=== PATIENT | male | born 1950 | race Caucasian/White ===

== ENCOUNTER 2019-02-21 16:15 | Emergency (ER) | payer MEDICARE, OTHER ==
[~2019-02-21] VITALS: Ht 190.5 cm; Wt 113.4 kg
[2019-02-21 17:07] LABS: ABSOLUTE EOSINOPHILS 0.2 thou/uL (0.0-0.7); ABSOLUTE LYMPHOCYTES 2.3 thou/uL (0.8-5.3); ABSOLUTE NEUTROPHILS 6.7 thou/uL (1.6-8.1); BASOPHILS 0.4 %; EOSINOPHILS 1.8 %; HEMATOCRIT 32.7 % (42.0-52.0); HEMOGLOBIN 10.6 gm/dL (14.0-18.0); LYMPHOCYTES 22.5 %; MCH 21.2 pg (26.0-34.0); MCHC 32.2 g/dL (28.0-37.0); MCV 65.8 fL (80.0-100.0); MONOCYTES 9.7 %; MPV 7.9 fl. (7.2-11.1); NUCLEATED RBCS 0 /100WBC; PLATELET COUNT* 209 thou/uL (150-400); POLYS 65.6 %; RBC 4.97 mil/uL (4.50-6.00); RDW-CV 15.7 % (10.5-14.5); WBC 10.2 thou/uL (4.0-11.0)
[2019-02-21 17:15] LABS: CALCIUM 8.7 mg/dL (8.5-10.1); CREATININE 1.5 mg/dL (0.6-1.3); POTASSIUM 3.9 mmol/L (3.5-5.1)
[2019-02-21 17:17] LABS: APTT 30.8 Seconds (25.0-31.3); PROTIME 10.2 Seconds (9.20-11.50)
[2019-02-21 17:29] LABS: INFLUENZA A ANTIGEN Negative (Negative); INFLUENZA B ANTIGEN Negative (Negative)
[2019-02-21 17:30] LABS: ALBUMIN 3.1 g/dL (3.4-5.0); TOTAL BILIRUBIN 0.3 mg/dL (<0.1-1.0)
[2019-02-21 17:36] LABS: PLATELET ESTIMATE ADEQUATE
[2019-02-21 17:37] LABS: ANISOCYTOSIS Occasional; MICROCYTES 3+
[2019-02-21 17:38] LABS: HYPOCHROMASIA 1+
[2019-02-21 17:39] LABS: OVALOCYTES Occasional
[2019-02-21 17:56] LABS: URINE BILIRUBIN NEGATIVE (Negative); URINE BLOOD 3+ (Negative); URINE CLARITY CLEAR; URINE COLOR YELLOW; URINE GLUCOSE-RANDOM NEGATIVE (Negative); URINE KETONES NEGATIVE (Negative); URINE LEUKOCYTES-REFLEX 1+ (Negative); URINE NITRITE-REFLEX NEGATIVE (Negative); URINE PROTEIN 1+ (Negative); URINE SPECIFIC GRAVITY <= 1.005 (1.005-1.030); URINE UROBILINOGEN 0.2 E.U./dl (0.2-1.0)
[2019-02-21] MEDS ORDERED: LEVAQUIN 500 M500 MG PO (18:17)
[2019-02-21 18:18] LABS: SQUAMOUS 0-3 Few /LPF (0-3); WBC CLUMPS Few (None Seen)
[2019-02-21 18:19] LABS: CASTS None Seen /LPF (None Seen); CRYSTALS None Seen /LPF (None Seen); MUCUS 0-3 Light strn/LPF (None Seen); URINE RBC 3-10 Few /HPF (0-2); URINE WBC-REFLEX 6-15 Few /HPF (0-5)
[2019-02-21 18:35] VITALS: BP 162/96
--- NOTE | 2019-02-22 10:01 | EKG ---
[place] [address] ELECTROCARDIOGRAM REPORT Name: KASSICRYSTAL Todd [id number] Admission: 02/21/19 Attend Phys: Discharge: 02/21/19 Date of : 54 Report #: [id number] THIS REPORT FOR: //name// [facility] ED Test Date: 2019-02-21 Test Time: 16:50:29 Pat Name: CRYSTAL SOLITARIO Department: Room: Gender: M Director Of Income Tax: YORDY : 1950 Requested By: Melvin Reynolds Order Number: [id number] MD: Gregg Sexton Measurements Intervals [place] Rate: 113 P: 15 AR: 165 QRS: -17 QRSD: 96 T: 48 QT: 345 QTc: 473 Interpretive Statements Sinus tachycardia Borderline left axis deviation Abnormal R-wave progression, late transition No previous ECG available for comparison Electronically Signed On 02-22-2019 10:01:01 COMPLIANCE REVIEWER by Gregg Sexton [email or web address] <ELECTRONICALLY SIGNED> By: Gregg Sexton MD, [facility] 02/22/19 1001 49 1650 Gregg Sexton MD, FACC /EPI
== END 2019-02-21 18:37 | disposition home or self-care (01) ==
LOC: M.ERS 16:15
PROVIDERS: Family Medicine
DX: N39.0 Urinary tract infection, site not specified (principal); R53.1 Weakness

== ENCOUNTER 2020-09-03 09:40 | Emergency (ER) | payer OTHER, MEDICARE ==
[~2020-09-03] VITALS: Ht 190.5 cm; Wt 119.8 kg
[~2020-09-03 09:40] MED LIST: LEVAQUIN 500 M500 MG PO
[2020-09-03] MEDS ORDERED: CANCER MED (09:56)
[2020-09-03 10:51] LABS: URINE BILIRUBIN NEGATIVE (Negative); URINE BLOOD 3+ (Negative); URINE CLARITY CLEAR; URINE COLOR YELLOW; URINE GLUCOSE-RANDOM NEGATIVE (Negative); URINE KETONES NEGATIVE (Negative); URINE PROTEIN 2+ (Negative); URINE UROBILINOGEN 0.2 E.U./dl (0.2-1.0)
[2020-09-03 10:56] LABS: URINE LEUKOCYTES-REFLEX 3+ (Negative); URINE NITRITE-REFLEX POSITIVE (Negative)
[2020-09-03 10:57] LABS: AMORPHOUS URATES Few /LPF (None Seen); BACTERIA-REFLEX >30 Many /HPF (None Seen); CASTS None Seen /LPF (None Seen); CRYSTALS None Seen /LPF (None Seen); MUCUS >6 Heavy strn/LPF (None Seen); SQUAMOUS 0-3 Few /LPF (0-3); URINE RBC 3-10 Few /HPF (0-2); URINE WBC-REFLEX >25 Many /HPF (0-5)
[2020-09-03] MEDS ORDERED: MACROBID 100 M100 M1 PO (10:58)
[2020-09-03 11:14] VITALS: BP 173/94
== END 2020-09-03 11:14 | disposition home or self-care (01) ==
LOC: M.ERS 09:40
PROVIDERS: Family Medicine
DX: T83.018A Breakdown (mechanical) of other urinary catheter, initial encounter (principal); N39.0 Urinary tract infection, site not specified; I10 Essential (primary) hypertension; Y84.9 Medical procedure, unspecified as the cause of abnormal reaction of the patient, or of later complication, without mention of misadventure at the time of the procedure; Y92.89 Other specified places as the place of occurrence of the external cause

== ENCOUNTER 2020-12-08 20:46 | Inpatient (IN) | payer OTHER ==
[~2020-12-08] VITALS: Ht 190.5 cm; Wt 121.6 kg
[~2020-12-08 20:46] MED LIST changes: +CANCER MED; +MACROBID 100 M100 M1 PO
[2020-12-08 21:11] VITALS: BP 156/85
[2020-12-08 21:16] VITALS: BP 151/92
[2020-12-08] MEDS ORDERED: XTANDI40 MG PO (21:23)
[2020-12-08] MEDS ORDERED: CENTRUM ADULTS1 EACH PO (21:24)
[2020-12-08] MEDS ORDERED: NORVASC5 M1 PO (21:24)
[2020-12-08] MEDS ORDERED: ASA81BEC PO (21:24)
[2020-12-08] MEDS ORDERED: IRON236 MG PO (21:25)
[2020-12-08] MEDS ORDERED: D3 (21:26)
[2020-12-08] MEDS ORDERED: CINNAMON500 MG PO (21:26)
[2020-12-08 22:03] LABS: ABSOLUTE EOSINOPHILS 0.2 thou/uL (0.0-0.7); ABSOLUTE LYMPHOCYTES 1.2 thou/uL (0.8-5.3); ABSOLUTE NEUTROPHILS 11.4 thou/uL (1.6-8.1); BASOPHILS 0.3 %; EOSINOPHILS 1.4 %; HEMATOCRIT 37.2 % (42.0-52.0); HEMOGLOBIN 11.8 gm/dL (14.0-18.0); LYMPHOCYTES 8.4 %; MCH 20.8 pg (26.0-34.0); MCHC 31.7 g/dL (28.0-37.0); MCV 65.6 fL (80.0-100.0); MONOCYTES 7.5 %; MPV 7.6 fl. (7.2-11.1); NUCLEATED RBCS 0 /100WBC; PLATELET COUNT* 302 thou/uL (150-400); POLYS 82.4 %; RBC 5.67 mil/uL (4.50-6.00); RDW-CV 16.6 % (10.5-14.5); WBC 13.8 thou/uL (4.0-11.0)
[2020-12-08 22:12] LABS: CALCIUM 9.4 mg/dL (8.5-10.1); CREATININE 1.3 mg/dL (0.6-1.3); POTASSIUM 3.7 mmol/L (3.5-5.1)
[2020-12-08 22:15] LABS: URINE COLOR YELLOW
[2020-12-08 22:16] LABS: SQUAMOUS 0-3 Few /LPF (0-3); URINE CLARITY CLOUDY; URINE WBC-REFLEX >25 Many /HPF (0-5)
[2020-12-08 22:17] LABS: CASTS None Seen /LPF (None Seen); CRYSTALS None Seen /LPF (None Seen)
[2020-12-08 22:17] LABS: ALBUMIN 3.4 g/dL (3.4-5.0); MAGNESIUM 1.8 mg/dL (1.8-2.4); TOTAL BILIRUBIN 0.4 mg/dL (<0.1-1.0); TOTAL PROTEIN 8.1 g/dL (6.4-8.2)
[2020-12-08 22:22] LABS: PLATELET ESTIMATE ADEQUATE
[2020-12-08 22:24] LABS: ANISOCYTOSIS 1+; HYPOCHROMASIA 1+; MICROCYTES 1+
[2020-12-08 23:09] LABS: BE 0.3 mmol/L (-2 to +3); PCO2 33.6 mmHg (35.0-45.0); PO2 79.8 mmHg (75.0-100.0); pH 7.463 (7.340-7.450)
[2020-12-09] VITALS (7 sets, daily range): BP systolic 114–145; BP diastolic 58–86
--- NOTE | 2020-12-09 11:32 | EKG ---
[place] [address] ELECTROCARDIOGRAM REPORT Name: CRYSTAL SOLITARIO Room: [place] [address] ADM [place] [facility]#: [id number] Admission: 12/09/20 Attend Phys: Demetris Landrum, Discharge: Date of : 54 Date of Service: 12/08/202221 Report #: [id number] THIS REPORT FOR: //name// [facility] ED Test Date: 2020-12-08 Test Time: 22:22:55 Pat Name: CRYSTAL SOLITARIO Department: Room: [facility] Gender: M Prototype Engineer: [facility] : 1950 Requested By: Ana Michelle Order Number: [id number] MD: Anthony Booker Measurements Intervals [place] Rate: 109 P: 32 LA: 156 QRS: -24 QRSD: 94 T: 82 QT: 347 QTc: 468 Interpretive Statements Sinus tachycardia Borderline left axis deviation Abnormal R-wave progression, late transition Compared to ECG 02/21/2019 16:50:29 No significant changes Electronically Signed On 12-09-2020 11:31:44 CDT by Anthony Booker [email or web address] <ELECTRONICALLY SIGNED> By: Manuelito Booker MD, FACC 12/09/20 1131 21 21 Manuelito Booker MD, FAC /EPI
[2020-12-10 03:30] VITALS: BP 107/52
[2020-12-10 04:33] LABS: HEMATOCRIT 30.7 % (42.0-52.0); HEMOGLOBIN 9.9 gm/dL (14.0-18.0); MCH 21.4 pg (26.0-34.0); MCHC 32.3 g/dL (28.0-37.0); MCV 66.3 fL (80.0-100.0); MPV 7.9 fl. (7.2-11.1); RBC 4.62 mil/uL (4.50-6.00); RDW-CV 16.7 % (10.5-14.5); WBC 7.9 thou/uL (4.0-11.0)
[2020-12-10 04:59] LABS: CALCIUM 8.2 mg/dL (8.5-10.1); POTASSIUM 3.4 mmol/L (3.5-5.1)
[2020-12-10 12:00] VITALS: BP 150/82
[2020-12-10 16:00] VITALS: BP 151/80
[2020-12-10 20:00] VITALS: BP 154/80
[2020-12-11 00:31] VITALS: BP 151/81
[2020-12-11 04:22] VITALS: BP 137/81
[2020-12-11 04:31] LABS: HEMATOCRIT 30.9 % (42.0-52.0); HEMOGLOBIN 9.8 gm/dL (14.0-18.0); MCH 21.1 pg (26.0-34.0); MCHC 31.7 g/dL (28.0-37.0); MCV 66.5 fL (80.0-100.0); MPV 7.2 fl. (7.2-11.1); RBC 4.64 mil/uL (4.50-6.00); RDW-CV 16.9 % (10.5-14.5); WBC 7.2 thou/uL (4.0-11.0)
[2020-12-11 04:46] LABS: CALCIUM 8.4 mg/dL (8.5-10.1); CREATININE 1.1 mg/dL (0.6-1.3); POTASSIUM 3.6 mmol/L (3.5-5.1)
[2020-12-11 08:00] VITALS: BP 151/62
[2020-12-11 12:17] VITALS: BP 152/85
[2020-12-11 16:31] VITALS: BP 146/82
[2020-12-11 19:44] VITALS: BP 141/96
[2020-12-12] VITALS: BP 152/88
[2020-12-12 04:00] VITALS: BP 142/71
[2020-12-12 07:51] VITALS: BP 138/72
[2020-12-12 11:47] VITALS: BP 153/86
[2020-12-12 16:36] VITALS: BP 139/79
[2020-12-13] VITALS (7 sets, daily range): BP systolic 130–162; BP diastolic 61–87
[2020-12-13 07:46] LABS: HEMATOCRIT 31.7 % (42.0-52.0); HEMOGLOBIN 10.1 gm/dL (14.0-18.0); MCH 21.1 pg (26.0-34.0); MCHC 31.9 g/dL (28.0-37.0); MCV 66.2 fL (80.0-100.0); MPV 7.2 fl. (7.2-11.1); RBC 4.79 mil/uL (4.50-6.00); RDW-CV 16.5 % (10.5-14.5); WBC 6.8 thou/uL (4.0-11.0)
[2020-12-13 07:57] LABS: CALCIUM 8.5 mg/dL (8.5-10.1); CREATININE 1.1 mg/dL (0.6-1.3); POTASSIUM 3.8 mmol/L (3.5-5.1)
[2020-12-13] MEDS ORDERED: CEFEPIME HCL2 GM IV (11:44)
[2020-12-14 04:00] VITALS: BP 145/88
[2020-12-14 09:18] VITALS: BP 155/79
[2020-12-14 12:00] VITALS: BP 142/80
[2020-12-14 13:49] VITALS: BP 156/87
[2020-12-14 13:50] VITALS: BP 156/87
[2020-12-14 13:53] VITALS: BP 156/87
== END 2020-12-14 14:43 | disposition home health service (06) | DRG 872 ==
LOC: M.ERS 20:46 → M.TBA-ER 12-09 01:20 → M.2W 12-09 01:20
PROVIDERS: Internal Medicine; Personal Emergency Response Attendant; ADMIT Internal Medicine; ATTEND Internal Medicine
PROC: 02H633Z Insertion of Infusion Device into Right Atrium, Percutaneous Approach (ICD-10-PCS; principal; 2020-12-13)
PROC: B548ZZA Ultrasonography of Superior Vena Cava, Guidance (ICD-10-PCS; principal; 2020-12-13)
PROC: B5181ZA Fluoroscopy of Superior Vena Cava using Low Osmolar Contrast, Guidance (ICD-10-PCS; principal; 2020-12-13)
DX: A41.9 Sepsis, unspecified organism (principal); N39.0 Urinary tract infection, site not specified; I10 Essential (primary) hypertension; R53.81 Other malaise; R31.9 Hematuria, unspecified; B96.89 Other specified bacterial agents as the cause of diseases classified elsewhere; G35 Multiple sclerosis; N31.9 Neuromuscular dysfunction of bladder, unspecified; Z79.899 Other long term (current) drug therapy

== ENCOUNTER 2020-12-20 11:26 | Inpatient (IN) | payer OTHER ==
[~2020-12-20] VITALS: Ht 190.5 cm; Wt 114.8 kg
--- NOTE | ~2020-12-20 | CON ---
[facility] [address] [place] [address] CONSULTATION Name: KASSICRYSTAL Todd Room: [address] IN M.R.#: [id number] Admission: 12/20/20 Attend Phys: Veronika Sanches Discharge: Date of : 54 Report #: [id number] THIS REPORT FOR: cc: Ana Paula Morales MD, Lin W. MD Khosla, Parveen K. MD ~ DATE OF CONSULTATION: 12/20/2020 HISTORY OF PRESENT ILLNESS: This is a 70-year-old male patient who was seen by me in the Emergency Room. I talked to Emergency Room physician. Both patient and the significant other are poor historian. They did tell me that he was diagnosed in [place] with MS, that was 30-40 years ago. He was mainly having ambulation difficulty. When I asked him whether he has any visual loss, which came back in 3-4 weeks, he did not give a good answer. They said they used to get injection in the abdomen at one time, which I suspect was a disease modifying treatment with Copaxone, but they do not know the name. In any event, he has not seen any neurologist for a long time and he is not on any disease modifying treatment. He was in this hospital for sepsis and he has been to [facility]. He is pretty certain they did an MRI of the brain with and without contrast on him in [facility]. I am trying to get that records. His difficulty appeared to be mostly in ambulation. REVIEW OF SYSTEMS: A 14-point review of system is positive for a diagnosis of MS, recurrent urinary tract infection, generalized weakness, debility. He does not think his memory is affected. I do not see a pattern of relapsing remitting MS in this patient. It appears that the problem is getting gradually worse the best I can tell. I carried out the 14-point review of system in this patient. He has urinary problem, but he denies any eye, ENT, cardiac, respiratory, musculoskeletal, constitutional, dermatological, hematological, psychiatric, throat allergic symptom associated with present symptomatology. PAST MEDICAL HISTORY: Positive for diagnosis of MS. FAMILY HISTORY: Unremarkable. SOCIAL HISTORY: He denies the use of alcohol or tobacco. PHYSICAL EXAMINATION: The patient's examination indicated a well-built individual. His hearing and vision looks adequate. He does not appear to have any facial weakness. He can tell me what month it is. His speech looks intact. Cranial nerve examination, some time there was a question of nystagmus, but it was not a prominent finding. Otherwise, cranial nerve examination appears unremarkable. He moves all 4 extremities. His position sense is intact. His reflexes, if anything, are somewhat diminished. His plantar is mute. His tone looks symmetrical. I tried to do [id number] on him. [place] [address] CONSULTATION Name: CRYSTAL SOLITARIO Todd Room: [address]#: [id number] Admission: 12/20/20 Attend Phys: Veronika Sanches Discharge: Date of : 54 Report #: [id number] the instruction. He does not stay on the colindres, but it does appear that he may have some ataxia. They are difficult to tell. I could not look at the fundus. He is a well-built individual, who is obese. His cardiac examination appears unremarkable. No respiratory difficulty was noticed. His blood pressure is 127/73, respirations 22, pulse is 102. There is no edema and his pulses are palpable. LABORATORY DATA: Indicate a normal white count. IMPRESSION AND PLAN: Pretty difficult to form in this patient, but he does carry a diagnosis of multiple sclerosis. If he had a recent MRI done at [facility], I do not think there is any need to repeat it and we will just try to get that from them. He needs to be treated for the metabolic problem. If his fatigue still continues, he can be given a trial with Provigil, but I will await the results of MRI from [facility] and I will order some basic workup like vitamin B12, TSH and vitamin D levels in this patient, and we will follow up this patient with you. Thank you very much for this referral. By: [id number] Kaye MD /gretta
--- NOTE | ~2020-12-20 | CON ---
[address] [address] CONSULTATION Name: CRYSTAL SOLITARIO Room: [address] IN M.R.#: [id number] Admission: 12/20/20 Attend Phys: Veronika Sanches Discharge: Date of : 54 Report #: [id number] THIS REPORT FOR: cc: Ana Paula Morales MD, Lin W. MD Khosla, Parveen K. MD ~ DATE OF CONSULTATION: 12/21/2020 HISTORY OF PRESENT ILLNESS: A 70-year-old male patient who was seen by me today and he says he is feeling better. His weakness has improved. He is not back to the baseline yet. We have made multiple attempts to get records from [facility], but we have been unsuccessful so far. PHYSICAL EXAMINATION: Pretty much unchanged. NEUROLOGIC: His higher functions, cranial nerve and neuromuscular examination subjectively was not different. CARDIAC AND RESPIRATORY: No change in cardiac or respiratory status. VITAL SIGNS: His blood pressure is 140/76, respirations 20, pulse is 97. IMPRESSION: I suspect the patient's symptom is because of urinary tract infection and other metabolic problem. We will see if he continues to improve. In the meantime, if we can get the record from [facility] that will help and we have put another request. Dr. Caldwell will follow up this patient with you from tomorrow. By: [id number] Kaye MD /gretta
[~2020-12-20 11:26] MED LIST changes: +ASA81BEC PO; +CEFEPIME HCL2 GM IV; +CENTRUM ADULTS1 EACH PO; +CINNAMON500 MG PO; +D3; +IRON236 MG PO; +NORVASC5 M1 PO; +XTANDI40 MG PO
[2020-12-20 11:38] VITALS: BP 151/88
[2020-12-20] MEDS ORDERED: CEFEPIME 22 GM/100 M IV (11:41)
[2020-12-20 12:16] LABS: WBC 8.7 thou/uL (4.0-11.0)
[2020-12-20 12:17] LABS: URINE BILIRUBIN NEGATIVE (Negative); URINE BLOOD 3+ (Negative); URINE CLARITY CLEAR; URINE COLOR YELLOW; URINE GLUCOSE-RANDOM NEGATIVE (Negative); URINE KETONES NEGATIVE (Negative); URINE LEUKOCYTES 2+ (Negative); URINE NITRITE NEGATIVE (Negative); URINE PROTEIN 1+ (Negative); URINE UROBILINOGEN 0.2 E.U./dl (0.2-1.0)
[2020-12-20 12:17] LABS: ABSOLUTE EOSINOPHILS 0.3 thou/uL (0.0-0.7); ABSOLUTE LYMPHOCYTES 1.4 thou/uL (0.8-5.3); ABSOLUTE MONOCYTES 0.6 thou/uL (0.0-1.2); ABSOLUTE NEUTROPHILS 6.4 thou/uL (1.6-8.1); BASOPHILS 0.4 %; HEMATOCRIT 33.2 % (42.0-52.0); HEMOGLOBIN 10.5 gm/dL (14.0-18.0); LYMPHOCYTES 16.5 %; MCH 20.9 pg (26.0-34.0); MCHC 31.8 g/dL (28.0-37.0); MCV 65.8 fL (80.0-100.0); MONOCYTES 6.9 %; MPV 7.5 fl. (7.2-11.1); NUCLEATED RBCS 0 /100WBC; PLATELET COUNT* 294 thou/uL (150-400); POLYS 73.2 %; RBC 5.04 mil/uL (4.50-6.00); RDW-CV 16.4 % (10.5-14.5)
[2020-12-20 12:25] LABS: CALCIUM 9.7 mg/dL (8.5-10.1); CREATININE 1.2 mg/dL (0.6-1.3); POTASSIUM 3.6 mmol/L (3.5-5.1)
[2020-12-20 12:37] LABS: ALBUMIN 2.9 g/dL (3.4-5.0); TOTAL BILIRUBIN 0.5 mg/dL (<0.1-1.0)
[2020-12-20 12:42] LABS: BACTERIA 1-9 Few /HPF (None Seen); CASTS None Seen /LPF (None Seen); CRYSTALS None Seen /LPF (None Seen); MUCUS 0-3 Light strn/LPF (None Seen); SQUAMOUS 0-3 Few /LPF (0-3); URINE WBC 6-15 Few /HPF (0-5)
[2020-12-20 13:03] LABS: PLATELET ESTIMATE ADEQUATE
[2020-12-20 13:04] LABS: ANISOCYTOSIS Occasional; HYPOCHROMASIA 2+; MICROCYTES 2+
--- NOTE | 2020-12-20 15:43 | NUR ---
DR. MARTIN PAGED REGARDING PT NEEDING HIS AT HOME DOSE OF CEFEPIME FOR 1600.
--- NOTE | 2020-12-20 17:07 | NUR ---
DR. MARTIN PAGED AGAIN REGARDING PT'S CONCERN ABOUT HOME IV ANTIBIOTICS.
--- NOTE | 2020-12-20 17:30 | NUR ---
DR. MARTIN MESSAGED AGAIN REGARDING IV ABX
--- NOTE | 2020-12-20 18:15 | NUR ---
DR. MARTIN MESSAGED AGAIN R/T IV ABX.
[2020-12-20 18:24] VITALS: BP 127/87
[2020-12-20 19:40] VITALS: BP 120/82
[2020-12-20 19:55] VITALS: BP 131/82
[2020-12-21 00:33] VITALS: BP 126/72
[2020-12-21 04:00] VITALS: BP 135/82
--- NOTE | 2020-12-21 04:33 | NUR ---
ASSUMED PT CARE AT APPROX. 1954. PT IS A/OX4. PT IS TRACING ST-SR ON PLASTIC FRAME INSERTER. PT IS ON RA. VSS. PT HAS GARRICK PICC-SINGLE LUMEN, IT IS PATENT, DRESSING IS C/D/I. PT WAS CONCERNED ABOUT GETTING IV ANTIBIOTICS RESUMED. MD MARTIN NOTIFIED EARLY IN SHIFT VIA PHONE AND SHE STATED SHE WAS AWARE. IV ANTIBIOTICS RESUMED THIS AM. SEE EMAR. PT CURRENTLY SLEEPING. FALL PRECAUTIONS IN PLACE FOR SAFETY. CALL LIGHT WITHIN REACH. WILL CONT. TO MONITOR.
[2020-12-21 05:43] LABS: HEMATOCRIT 32.3 % (42.0-52.0); HEMOGLOBIN 10.4 gm/dL (14.0-18.0); MCH 21.1 pg (26.0-34.0); MCHC 32.1 g/dL (28.0-37.0); MCV 65.8 fL (80.0-100.0); MPV 7.6 fl. (7.2-11.1); RBC 4.91 mil/uL (4.50-6.00); RDW-CV 16.1 % (10.5-14.5); WBC 7.3 thou/uL (4.0-11.0)
[2020-12-21 05:48] LABS: CALCIUM 9.2 mg/dL (8.5-10.1); CREATININE 1.1 mg/dL (0.6-1.3); POTASSIUM 3.9 mmol/L (3.5-5.1)
[2020-12-21 07:21] VITALS: BP 127/79
--- NOTE | 2020-12-21 07:51 | NUR ---
ASSUMED CARE OF PT THIS AM AROUND 714- PURCHASING AND CLAIMS SUPERVISOR IN PLACE ORDERED, TRACING SR- UPON ASSESSMENT PT NOTED TO BE RESTING IN BED- PT A&O X4- CONT OF BOWEL, CHRONIC COREA IN PLACE R/T RETENTION D/D TEA COLORED URINE- Q [address] INDICATED- LCTA, RESP EVEN AND UN-LABORED- VSS, O2 SAT 96% ON RA- ABD SOFT/ROUND/NON-TENDER, BS X4 QUADS- LAST BM REPORTED X2 DAYS AGO- RUE SINGLE LUMEN PICC NOTED C/D/I AND SL; IV ABT GIVEN PRESCRIBED THIS AM- TRACE BLE EDEMA NOTED- PT DENIES ANY C/O PAIN- CALL LIGHT AND PERSONAL BELONGINGS WITH IN REACH- HOURLY ROUNDS IN PLACE R/T SAFETY/NEEDS- ALL NEEDS MET AT THIS TIME
--- NOTE | 2020-12-21 08:08 | EKG ---
[place] [address] ELECTROCARDIOGRAM REPORT Name: CRYSTAL SOLITARIO Room: [address] ADM IN [facility]#: [id number] Admission: 12/20/20 Attend Phys: Maximilian Saini Discharge: Date of : 54 Date of Service: 12/20/20 1139 Report #: [id number] THIS REPORT FOR: //name// [facility] ED Test Date: 2020-12-20 Test Time: 11:39:19 Pat Name: CRYSTAL SOLITARIO Department: Room: [facility] Gender: M Education And Outreach Coordinator: JESU : 1950 Requested By: Byron Kothari Order Number: [id number] MD: George Cody Measurements Intervals [place] Rate: 101 P: 38 [place]: 148 QRS: -7 QRSD: 101 T: 87 QT: 350 QTc: 454 Interpretive Statements Sinus tachycardia Minimal ST depression, lateral leads Baseline wander in lead(s) V1,V2 Compared to ECG 12/08/2020 22:22:55 ST (T wave) deviation now present Electronically Signed On 12-21-2020 8:08:25 CDT by George Cody [email or web address] <ELECTRONICALLY SIGNED> By: George Cody MD, FACC 12/21/20 0808 1139 1139 George Cody MD, FACC /EPI
--- NOTE | 2020-12-21 09:55 | NUR ---
CM ASSESSMENT: PT IS KNOWN TO THIS CM FROM PREVIOUS ADMIT. PT IS A READMIT THAT HAD D/C'D 12/14/20 HOME WITH [facility], AND IV ABT'S THRU [facility]. PT'S SPOUSE INFORMS THAT THE PT WAS SUPPOSED TO HAVE IV ABT'S UNTIL 12/27/20. PRIOR TO PT'S PREVIOUS ADMIT PT USED ELECTRIC SCOOTER FOR MOBILITY. PT'S SPOUSE ASSIST WITH ALL CARES, AND DID ALL DESCRIPTIVE CATALOG LIBRARIAN AND DRIVING FOR THE HOUSEHOLD. PT CURRENTLY ON-SERVICE WITH [facility] AND [facility]. PLAN FOR PT TO RETURN HOME WITH HH AND [facility] AT D/C. CM WILL REMAIN AVAILABLE TO ASSIST AND FOLLOW NEEDED. [facility] PHONE: [phone] FAX: [phone] [facility] PHONE: [phone]
[2020-12-21 13:13] VITALS: BP 124/68
[2020-12-21 19:10] VITALS: BP 140/76
[2020-12-21 20:00] VITALS: BP 122/73
[2020-12-22] VITALS: BP 103/56
[2020-12-22 04:00] VITALS: BP 102/63
--- NOTE | 2020-12-22 05:28 | NUR ---
PT ALERT ORIENTED. COREA FOR CHRONIC URINE RETENTION. NO BLADDER SPASMS NOTED TONIGHT. MACHINE PLATE STACKER TRACING SR. ON RA.
[2020-12-22 05:48] LABS: HEMATOCRIT 32.3 % (42.0-52.0); HEMOGLOBIN 10.2 gm/dL (14.0-18.0); MCH 20.9 pg (26.0-34.0); MCHC 31.6 g/dL (28.0-37.0); MCV 66.1 fL (80.0-100.0); MPV 8.1 fl. (7.2-11.1); RBC 4.89 mil/uL (4.50-6.00); RDW-CV 16.6 % (10.5-14.5); WBC 8.9 thou/uL (4.0-11.0)
[2020-12-22 06:05] LABS: ALBUMIN 2.7 g/dL (3.4-5.0); CALCIUM 8.9 mg/dL (8.5-10.1); CREATININE 1.1 mg/dL (0.6-1.3); MAGNESIUM 1.9 mg/dL (1.8-2.4); POTASSIUM 3.8 mmol/L (3.5-5.1); TOTAL BILIRUBIN 0.3 mg/dL (<0.1-1.0); TOTAL PROTEIN 7.5 g/dL (6.4-8.2)
[2020-12-22 07:45] VITALS: BP 121/66
--- NOTE | 2020-12-22 08:15 | NUR ---
ASSUMED CARE OF PT THIS AM AROUND 07- APPLICATIONS COORDINATOR IN PLACE ORDERED, TRACING SR- UPON ASSESSMENT PT NOTED TO BE RESTING IN BED- PT A&O X4- CONT OF BOWEL, COREA IN PLACE R/T CHRONIC RETENTION D/D TEA COLORED URINE- LCTA, RESP EVEN AND UN-LABORED- VSS, O2 SAT 99% ON RA- ABD SOFT/ROUND/NON-TENDER, BS X4 QUADS- LAST BM NOTED 12/21/20- RUE PICC NOTED C/D/I AND SL- Q 2HOUR TURNS IN PLACE INDICATED- PT DENIES ANY C/O PAIN- CALL LIGHT AND PERSONAL BELONGINGS WITH IN REACH- HOURLY ROUNDS IN PLACE R/T SAFETY/NEEDS- ALL NEEDS MET AT THIS TIME
[2020-12-22 13:48] VITALS: BP 116/77
--- NOTE | 2020-12-22 14:04 | NUR ---
PLAN OF CARE: PHYSICIAN INFORMS THAT THE PT IS MEDICALLY STABLE FOR D/C TO INPT ARU. INPT ARU CONSULTED AND PLAN TO START INSURANCE AUTH TODAY. PT/OT F/U NEEDED TO ASSIST IN DETERMINIG PT'S MOBILITY AND TO ASSIST WITH OBTAINING INSURANCE AUTH FOR THE PT. CM WILL REMAIN AVAILABLE TO ASSIST AND FOLLOW NEEDED.
[2020-12-22 16:11] LABS: URINE BLOOD 3+ (Negative); URINE CLARITY CLOUDY; URINE COLOR BROWN; URINE GLUCOSE-RANDOM NEGATIVE (Negative); URINE KETONES NEGATIVE (Negative); URINE PROTEIN 2+ (Negative); URINE UROBILINOGEN 0.2 E.U./dl (0.2-1.0)
[2020-12-22 16:24] LABS: ICTOTEST (BILI CONFIRMATORY) Negative (Negative); URINE BILIRUBIN 1+ (Negative); URINE LEUKOCYTES-REFLEX 2+ (Negative); URINE NITRITE-REFLEX POSITIVE (Negative)
[2020-12-22 16:34] LABS: SQUAMOUS 4-10 Moderate /LPF (0-3)
[2020-12-22 16:35] LABS: BACTERIA-REFLEX 1-9 Few /HPF (None Seen); CASTS None Seen /LPF (None Seen); CRYSTALS None Seen /LPF (None Seen); URINE RBC >20 Many /HPF (0-2); URINE WBC-REFLEX 6-15 Few /HPF (0-5); YEAST-REFLEX Present (None Seen)
[2020-12-22 17:32] VITALS: BP 137/82
[2020-12-22 20:00] VITALS: BP 121/72
[2020-12-23] VITALS: BP 99/58
[2020-12-23 04:00] VITALS: BP 118/49
--- NOTE | 2020-12-23 04:24 | NUR ---
PT ALERT ORIENTED X 4. NPO SINCE [place] FOR ABD US. PT HAS BEEN TURNING SELF VERY WELL THROUGH OUT THE SHIFT. PROTOZOOLOGY TEACHER TRACING SR. COREA IRRIGATED AT START OF SHIFT. DRAINING DARK YELLOW.
[2020-12-23 08:00] VITALS: BP 99/63
[2020-12-23 17:28] VITALS: BP 138/76
[2020-12-23 20:00] VITALS: BP 131/83
[2020-12-24] VITALS: BP 132/83
--- NOTE | 2020-12-24 01:24 | NUR ---
PT ALERT ORIENTED. PT IS LISTED A TURN BUT TURNS HIMSELF. WRAPPER STITCHER TRACING SR. NAHOMY DOSS.
[2020-12-24 04:00] VITALS: BP 157/72
[2020-12-24 09:30] VITALS: BP 122/83
[2020-12-24 12:23] VITALS: BP 138/75
[2020-12-24 17:37] VITALS: BP 115/67
[2020-12-24 20:00] VITALS: BP 121/66
[2020-12-25] VITALS: BP 112/78
[2020-12-25 04:00] VITALS: BP 129/86
--- NOTE | 2020-12-25 05:50 | NUR ---
SLEPT WELL TONIGHT. PT ABLE TO TURN HIMSELF IN BED WITH ENCOURAGEMENT. COREA WITH DK TEA COLORED URINE. ENCOURAGE PT TO DRINK FLUIDS. TELEMETRY SHOWING SR WITH PAC AND PVC. HS GOALS OF REST AND SAFETY ACHIEVED.
[2020-12-25 09:00] VITALS: BP 142/76
[2020-12-25] MEDS ORDERED: FLUCONAZOLE 10100 MG PO (10:24)
[2020-12-25] MEDS ORDERED: CEFEPIME HCL2 GM IV (10:24)
[2020-12-25 12:54] VITALS: BP 139/73
[2020-12-25 17:16] VITALS: BP 134/77
[2020-12-25 20:00] VITALS: BP 123/68
[2020-12-26 09:59] VITALS: BP 129/83
[2020-12-26 15:40] VITALS: BP 133/71
--- NOTE | 2020-12-26 15:41 | NUR ---
A&O X 3-4. PWD. LUNGS CLEAR. REGULAR HEART RATE. +BS X 4 QUADS. INDWELLING COREA CATH TO DEPENDENT DRAINAGE. CLOUDY TEA COLOR URINE NOTED. PICC LINE IN RIGHT UPPER ARM INTACT AND PATENT BUT DOES NOT DRAW BLOOD. AT BEDSIDE. NO C/O PAIN. WILL CONTINUE TO MONITOR. PENDING DISCHARGE TO REHAB AWAITING INS. AUTH.
--- NOTE | 2020-12-26 16:18 | NUR ---
PLAN OF CARE: PHYSICIAN INFORMS THAT THE PT IS MEDICALLY STABLE FOR D/C TO INPT ARU. INPT ARU AUTH PENDING. CM WILL REMAIN AVAILABLE TO ASSIST AND FOLLOW NEEDED.
[2020-12-26 19:45] VITALS: BP 137/76
--- NOTE | 2020-12-27 04:08 | NUR ---
PT A&O X 3-4. VSS ON RA. MEDS GIVEN ORDERED. NO C/O PAIN. COREA CATH IN PLACE. CALL LIGHT WITHIN REACH. WILL CONTINUE TO MONITOR.
[2020-12-27 08:00] VITALS: BP 138/78
[2020-12-27 13:17] LABS: ABSOLUTE EOSINOPHILS 0.3 thou/uL (0.0-0.7); ABSOLUTE LYMPHOCYTES 1.6 thou/uL (0.8-5.3); ABSOLUTE MONOCYTES 0.5 thou/uL (0.0-1.2); ABSOLUTE NEUTROPHILS 4.4 thou/uL (1.6-8.1); BASOPHILS 0.4 %; HEMATOCRIT 32.2 % (42.0-52.0); HEMOGLOBIN 10.2 gm/dL (14.0-18.0); LYMPHOCYTES 22.6 %; MCH 20.9 pg (26.0-34.0); MCHC 31.6 g/dL (28.0-37.0); MCV 66.2 fL (80.0-100.0); MONOCYTES 7.7 %; MPV 7.5 fl. (7.2-11.1); NUCLEATED RBCS 0 /100WBC; PLATELET COUNT* 324 thou/uL (150-400); POLYS 64.3 %; RBC 4.87 mil/uL (4.50-6.00); RDW-CV 16.8 % (10.5-14.5); WBC 6.9 thou/uL (4.0-11.0)
[2020-12-27 13:27] LABS: CALCIUM 9.1 mg/dL (8.5-10.1); POTASSIUM 4.1 mmol/L (3.5-5.1)
[2020-12-27 14:12] LABS: MICROCYTES 2+; PLATELET ESTIMATE ADEQUATE
[2020-12-27 14:13] LABS: HYPOCHROMASIA 2+
[2020-12-27 15:52] VITALS: BP 143/86
--- NOTE | 2020-12-27 16:07 | NUR ---
CM Followup Pt not yet medically clear to discharge. Pt auth for rehab denied due to being premature. Rehab auth to be resubmitted when pt stable and medically clear. PT pending neurology and then rehab auth will be resubmitted on Friday.
[2020-12-27 19:45] VITALS: BP 134/61
--- NOTE | 2020-12-28 04:14 | NUR ---
PT A&O X 4. VSS ON RA. PICC LINE PATENT AND IV ABX GIVEN. NO C/O PAIN. CALL LIGHT WITHIN REACH. WILL CONTINUE TO MONITOR.
[2020-12-28 08:25] LABS: ALBUMIN 2.9 g/dL (3.4-5.0); CALCIUM 8.9 mg/dL (8.5-10.1); CREATININE 0.9 mg/dL (0.6-1.3); POTASSIUM 3.8 mmol/L (3.5-5.1); TOTAL BILIRUBIN 0.3 mg/dL (<0.1-1.0); TOTAL PROTEIN 7.6 g/dL (6.4-8.2)
[2020-12-28 08:38] VITALS: BP 141/83
[2020-12-28 16:00] VITALS: BP 131/69
[2020-12-28 16:27] LABS: URINE BILIRUBIN NEGATIVE (Negative); URINE BLOOD 3+ (Negative); URINE COLOR YELLOW; URINE GLUCOSE-RANDOM NEGATIVE (Negative); URINE KETONES NEGATIVE (Negative); URINE LEUKOCYTES 2+ (Negative); URINE NITRITE POSITIVE (Negative); URINE PROTEIN 1+ (Negative); URINE SPECIFIC GRAVITY 1.015 (1.005-1.030); URINE UROBILINOGEN 0.2 E.U./dl (0.2-1.0)
[2020-12-28 16:28] LABS: URINE CLARITY HAZY
[2020-12-28 16:36] LABS: HYALINE CASTS 0-3 Few /LPF (None Seen); MUCUS None Seen strn/LPF (None Seen); SQUAMOUS NONE SEEN /LPF (0-3); URINE RBC >20 Many /HPF (0-2); URINE WBC >25 Many /HPF (0-5); WBC CLUMPS Few (None Seen)
[2020-12-28 16:37] LABS: BACTERIA 1-9 Few /HPF (None Seen); CRYSTALS None Seen /LPF (None Seen)
--- NOTE | 2020-12-28 17:47 | NUR ---
CM FOLLOWUP PT MEDICALLY CLEAR TO DISCHARGE. PT PENDING REHAB AUTH. CM TO FOLLOW PT.
[2020-12-28 20:12] VITALS: BP 129/68
--- NOTE | 2020-12-29 03:13 | NUR ---
ASSUMED CARE AT 1930. PATIENT HAS REMAINED ALERT AND ORIENTED X 4. RESTING QUIETLY ON HOURLY ROUNDS. TURNS Q2H. ANTIBIOTICS PER ORDER. FALL PRECAUTIONS IN PLACE. VITAL SIGNS STABLE. PATIENT DISCHARGE PENDING. CONTINUE TO MONITOR.
[2020-12-29 07:40] VITALS: BP 124/73
[2020-12-29 13:05] LABS: URINE BILIRUBIN NEGATIVE (Negative); URINE BLOOD 3+ (Negative); URINE CLARITY CLEAR; URINE COLOR YELLOW; URINE GLUCOSE-RANDOM NEGATIVE (Negative); URINE KETONES NEGATIVE (Negative); URINE LEUKOCYTES 2+ (Negative); URINE NITRITE NEGATIVE (Negative); URINE PROTEIN NEGATIVE (Negative); URINE SPECIFIC GRAVITY <= 1.005 (1.005-1.030); URINE UROBILINOGEN 0.2 E.U./dl (0.2-1.0)
[2020-12-29 13:07] LABS: BACTERIA None Seen /HPF (None Seen); CASTS None Seen /LPF (None Seen); CRYSTALS None Seen /LPF (None Seen); SQUAMOUS 0-3 Few /LPF (0-3); URINE RBC 0-2 Rare /HPF (0-2); URINE WBC 0-5 Rare /HPF (0-5)
[2020-12-29 16:00] LABS: ABSOLUTE LYMPHOCYTES 0.8 thou/uL (0.8-5.3); ABSOLUTE MONOCYTES 0.2 thou/uL (0.0-1.2); ABSOLUTE NEUTROPHILS 4.2 thou/uL (1.6-8.1); BASOPHILS 0.3 %; EOSINOPHILS 0.3 %; HEMATOCRIT 31.6 % (42.0-52.0); LYMPHOCYTES 15.3 %; MCH 20.9 pg (26.0-34.0); MCHC 31.7 g/dL (28.0-37.0); MCV 65.9 fL (80.0-100.0); MONOCYTES 4.3 %; MPV 7.5 fl. (7.2-11.1); NUCLEATED RBCS 0 /100WBC; PLATELET COUNT* 304 thou/uL (150-400); POLYS 79.8 %; RDW-CV 16.6 % (10.5-14.5); WBC 5.3 thou/uL (4.0-11.0)
[2020-12-29 16:10] LABS: CALCIUM 9.4 mg/dL (8.5-10.1); CREATININE 1.1 mg/dL (0.6-1.3); POTASSIUM 4.3 mmol/L (3.5-5.1)
[2020-12-29 16:35] LABS: HYPOCHROMASIA 1+; MICROCYTES 2+; PLATELET ESTIMATE ADEQUATE
[2020-12-29 16:57] VITALS: BP 134/83
--- NOTE | 2020-12-29 17:12 | NUR ---
CM FOLLOWUP PT MEDICALLY CLEAR TO DISCHARGE, BUT IS PENDING REHAB AUTH. CM TO CONTINUE TO FOLLOW PT.
--- NOTE | 2020-12-29 17:21 | NUR ---
PATIENT UP TO CHAIR THIS EVENING WITH THERAPY. NO COMPLAINTS OF PAIN. PATIENT ATTEMPTED TO HAVE A BM WITH NO SUCCESS. IV ABX INFUSED ORDRED. UA SENT FROM [facility] AFTER IRRIGATION. AWAITING PLACEMENT.
[2020-12-29 19:48] VITALS: BP 120/72
[2020-12-30 03:50] VITALS: BP 126/76
[2020-12-30 08:00] VITALS: BP 127/79
[2020-12-30 16:14] VITALS: BP 121/59
--- NOTE | 2020-12-30 17:56 | NUR ---
PT UP TO CHAIR TODAY AND THEN BACK TO BED. PT DID VERY WELL STANDING UP AND TAKING STEPS TO HIS BED. PT USES WALKER AND GAIT BELT. PT HAS A SINGLE LUMEN PICC LINE IN HIS RIGHT UPPER ARM, FLUSHES WELL BLOOD RETURN NOTED. VSS AFEBRILE. WILL CONTINUE TO MONITOR PLAN OF CARE.
[2020-12-30 20:19] VITALS: BP 120/73
[2020-12-31 08:00] VITALS: BP 126/75
[2020-12-31 16:09] VITALS: BP 119/71
--- NOTE | 2020-12-31 18:25 | NUR ---
PT UP TO RECLINER TODAY. WITHOUT DIFFICULTY. PT STOOD AND TOOK 2 TO THREE STEPS TO THE RECLINER WITH HIS GAIT BELT AND WALKER. PT'S PICC LINE FLUSHES WELL. VSS AFEBRILE. WILL CONTINUE TO MONITOR PLAN OF CARE.
[2020-12-31 20:21] VITALS: BP 123/74
--- NOTE | 2021-01-01 05:02 | NUR ---
PT ALERT AND ORIENTED, ROOM AIR, BEDREST AT THIS TIME. HE CAN GET UP TO CHAIR WITH ASSISTANCE AND MOVE IN BED WELL. HAD A BM OVERNIGHT, INCONTINENT OF URINE, COREA IN PLACE. HE DID NOT REPORT ANY PAIN OR NAUSEA. RECEIVED ALL MEDS/ABX SCHEDULED. PICC LINE IN GARRICK IN PLACE. WILL CONTINUE TO MONITOR.
--- NOTE | 2021-01-01 15:56 | NUR ---
CM FOLLOWUP CM AND PROVIDERS MET TO DISCUSS PLAN OF CARE. PT MEDICALLY CLEAR AND PENDING REHAB AUTH. CM TO CONTINUE TO FOLLOW.
[2021-01-01 16:00] VITALS: BP 115/71
--- NOTE | 2021-01-01 18:28 | NUR ---
PATIENT RESTING IN BED. ALERT AND ORIENTED X4. COREA SECURELY IN PLACE TO DEPENDENT DRAINAGE WIHTOUT DIFFICULTIES. PICC TO RIGHT UPPER ARM, SALINE LOCKED. NO C/O PAIN OR DISCOMFORT. CALCIUM CARB GIVEN X1. BED IN LOW/LOCKED POSITION. BED ALARM ON. CALL LIGHT WITHIN REACH. NO QUESTIONS OR CONCERNS VOICED.
[2021-01-01 20:00] VITALS: BP 114/73
--- NOTE | 2021-01-02 04:45 | NUR ---
ASSUMED CARES AT 1920. ALERT AND ORIENTED. PLEASANT. DENIED ANY PAIN. COREA CATHETER DD YELLOW URINE. IV SL PICC GARRICK. TURNS SELF IN BED. SLEPT WELL. CALL LIGHT IN REACH AND BED ALARM ON.
[2021-01-02 08:00] VITALS: BP 136/83
--- NOTE | 2021-01-02 12:05 | NUR ---
Nutrition: Pt admitted with weakness. H/o MS. Seen for LOS. Wt: 253#. Pt said he is eating well. Heart Healthy diet. Alb 2.9, prealb 16.2. Meds reviewed. Pt nor had any nutrition questions/concerns. Nutritionally stable at this time. Low risk.
[2021-01-02 16:00] VITALS: BP 128/75
--- NOTE | 2021-01-02 16:23 | NUR ---
1500: COREA CATHETER REMOVED AT THIS TIME. 8CC WATER OBTAINED FROM BALLOON. COREA TUBING WITHDREW WITHOUT ANY COMPLICATIONS. NEW 18F COREA CATHETER INSERTED AT THIS TIME PER STERILE PROCEDURE. 10CC STERILE WATER INFLATED BALLOON, BALLOON PULLED BACK TO WALL OF BLADDER. COREA IN PLACE WITH CLIP. DRAINING WITHOUT COMPLICATIONS. PATIENT WITH NO DIFFICULTIES. WILL CONTINUE TO MONITOR.
--- NOTE | 2021-01-02 16:49 | NUR ---
CM FOLLOWUP CM AND PROVIDERS MET TO DISCUSS PLAN OF CARE. PT MEDICALLY CLEAR TO DISCHARGE AND REHAB AUTH IS PENDING. CM TO CONTINUE TO FOLLOW PT.
--- NOTE | 2021-01-02 17:25 | NUR ---
PATIENT RESTING IN BED, EATING DINNER. COREA SECURELY IN PLACE TO DEPENDENT DRAINAGE WITHOUT COMPLICATIONS. PICC TO RIGHT UPPER ARM, PATENT. COREA CHANGED TODAY WITHOUT COMPLICATIONS. BED IN LOW/LOCKED POSITION. BED ALARM ON. CALL LIGHT WITHIN REACH. NO QUESTIONS OR CONCERNS VOICED.
[2021-01-02 20:00] VITALS: BP 110/69
--- NOTE | 2021-01-03 05:06 | NUR ---
PT SLEPT WELL OVERNIGHT WITHOUT COMPLAINTS. GARRICK PICC SL, IV ABX GIVEN ORDERED, AM LABS DRAWN. PT TURNS SELF INDEP IN BED. COREA DRAINING YELLOW URINE. CALL LITE IN EASY REACH AND BED ALARM ON FOR SAFETY. CM FOLLOWING FOR DC PLAN.
[2021-01-03 05:37] LABS: ABSOLUTE EOSINOPHILS 0.2 thou/uL (0.0-0.7); ABSOLUTE LYMPHOCYTES 2.3 thou/uL (0.8-5.3); ABSOLUTE MONOCYTES 0.6 thou/uL (0.0-1.2); ABSOLUTE NEUTROPHILS 4.7 thou/uL (1.6-8.1); BASOPHILS 0.3 %; EOSINOPHILS 2.9 %; LYMPHOCYTES 29.6 %; MCH 20.8 pg (26.0-34.0); MCHC 31.1 g/dL (28.0-37.0); MCV 66.7 fL (80.0-100.0); MONOCYTES 8.1 %; MPV 8.5 fl. (7.2-11.1); NUCLEATED RBCS 0 /100WBC; PLATELET COUNT* 252 thou/uL (150-400); POLYS 59.1 %; WBC 7.9 thou/uL (4.0-11.0)
[2021-01-03 05:47] LABS: CALCIUM 9.5 mg/dL (8.5-10.1); CREATININE 1.1 mg/dL (0.6-1.3); POTASSIUM 3.6 mmol/L (3.5-5.1)
[2021-01-03 08:00] VITALS: BP 126/82
[2021-01-03 13:48] VITALS: BP 126/82
[2021-01-03 14:56] VITALS: BP 126/82
--- NOTE | 2021-01-03 15:13 | NUR ---
PT DISCHARGED HOME WITH ALL BELONGINGS, ACCOMPANIED BY . PICC LINE REMOVED WITHOUT DIFFICULTY. PT'S HAS GOOD UNDERSTANDING OF ALL DISCHARGE INSTRUCTIONS AND WHEN TO TAKE PT TO ONCOLOGY DR AND UROLOGY DR. PT DISCHARGE HOME. PT DENIED PAIN ON DISCHARGE.
--- NOTE | 2021-01-03 17:30 | NUR ---
CM FOLLOWUP PT MEDICALLY CLEAR FOR DISCHARGE. REHAB DENIED BY INSURANCE AND PT NOT WILLING TO GO TO [facility]. PT OPTING TO DISCHARGE HOME WITH SERVICES PROVIDED BY [facility] ([phone]). [facility] IS PT'S PREFERRED PROVIDER AND PT WILLING TO WAIT FOR INITIAL VISIT TO OCCUR ON 01/06/21.
== END 2021-01-03 15:19 | disposition home health service (06) | DRG 699 ==
LOC: M.ERS 11:26 → M.2W 12:35 → M.TBA-ER 12:35 → M.2W 20:01 → M.3W 12-26 09:32
PROVIDERS: Emergency Medicine; Internal Medicine; ADMIT Internal Medicine; ATTEND Internal Medicine
PROC: 05HY33Z Insertion of Infusion Device into Upper Vein, Percutaneous Approach (ICD-10-PCS; principal; 2020-12-27)
DX: T83.511A Infection and inflammatory reaction due to indwelling urethral catheter, initial encounter (principal); E44.0 Moderate protein-calorie malnutrition; N02.9 Recurrent and persistent hematuria with unspecified morphologic changes; G35 Multiple sclerosis; N39.0 Urinary tract infection, site not specified; Z20.822 Contact with and (suspected) exposure to COVID-19; N31.9 Neuromuscular dysfunction of bladder, unspecified; C61 Malignant neoplasm of prostate; Z68.31 Body mass index [BMI] 31.0-31.9, adult; Z82.49 Family history of ischemic heart disease and other diseases of the circulatory system; Z79.82 Long term (current) use of aspirin; Z79.899 Other long term (current) drug therapy; Z85.46 Personal history of malignant neoplasm of prostate